=== PATIENT | female | born 1965 | race Caucasian/White ===

== ENCOUNTER → 2016-09-01 | Outpatient (CLI) | payer MEDICARE ==
[~2016-09-01] MED LIST: PSORIASIS CREAM
[2016-09-01 16:34] LABS: AUTOMATED NEUTROPHIL # 9.4 TH/MM3 (1.8-7.7); BASOPHIL # 0.1 TH/MM3 (0-0.2); BASOPHIL % 0.9 % (0.0-2.0); EOSINOPHIL # 0.1 TH/MM3 (0-0.4); EOSINOPHIL % 0.7 % (0.0-4.0); HEMO FLAGS DIFF FINAL; LYMPH % 17.7 % (9.0-44.0); LYMPHOCYTE # 2.2 TH/MM3 (1.0-4.8); MEAN CELL VOLUME 84.1 FL (80.0-100.0); MEAN CORPUSCULAR HGB CONC 33.3 % (32.0-36.0); MONO % 5.7 % (0.0-8.0); PLATELET COUNT 353 TH/MM3 (150-450); RED BLOOD COUNT 4.88 MIL/MM3 (4.00-5.30); RED CELL DISTRIBUTION WIDTH 16.6 % (11.6-17.2); WHITE BLOOD COUNT 12.5 TH/MM3 (4.0-11.0)
[2016-09-01 17:00] LABS: ANION GAP 13 MEQ/L (5-15); AST (GOT) 28 U/L (15-37); BICARBONATE 24.3 MEQ/L (21.0-32.0); BLOOD UREA NITROGEN 22 MG/DL (7-18); CHLORIDE 101 MEQ/L (98-107); GLOMERULAR FILTRATION RATE 64 ML/MIN (>89); GLUCOSE,FASTING 128 MG/DL (74-99); POTASSIUM 3.8 MEQ/L (3.5-5.1); SODIUM (NA) 138 MEQ/L (136-145)
[2016-09-01 17:03] LABS: ALKALINE PHOSPHATASE 106 U/L (45-117); ALT (GPT) 30 U/L (10-53); TOTAL BILIRUBIN ADULT 0.3 MG/DL (0.2-1.0)
[2016-09-04 14:28] LABS: MITOGEN MINUS NIL RESULT >10.00 IU/mL (()); NIL RESULT 0.01 IU/mL (()); QUANTIFERON TB GOLD RESULT Negative (Negative)
== END ==
LOC: CLAB 15:57
PROVIDERS: ATTEND Dermatology
DX: L40.0 Psoriasis vulgaris (principal)
CPT/HCPCS: 36415; 80053; 80074; 82248; 85025; 86480

== ENCOUNTER → 2016-10-13 | Outpatient (CLI) | payer MEDICARE ==
[2016-10-13 15:45] LABS: AUTOMATED NEUTROPHIL # 10.7 TH/MM3 (1.8-7.7); BASOPHIL # 0.1 TH/MM3 (0-0.2); BASOPHIL % 0.8 % (0.0-2.0); EOSINOPHIL # 0.2 TH/MM3 (0-0.4); EOSINOPHIL % 1.4 % (0.0-4.0); HEMATOCRIT 42.2 % (35.0-46.0); HEMO FLAGS DIFF FINAL; LYMPH % 21.1 % (9.0-44.0); LYMPHOCYTE # 3.1 TH/MM3 (1.0-4.8); MEAN CELL VOLUME 86.8 FL (80.0-100.0); MEAN CORPUSCULAR HEMOGLOBIN 28.6 PG (27.0-34.0); MONO % 4.7 % (0.0-8.0); PLATELET COUNT 382 TH/MM3 (150-450); RED BLOOD COUNT 4.87 MIL/MM3 (4.00-5.30); RED CELL DISTRIBUTION WIDTH 15.8 % (11.6-17.2); WHITE BLOOD COUNT 14.8 TH/MM3 (4.0-11.0)
[2016-10-13 16:05] LABS: ALT (GPT) 29 U/L (10-53); AST (GOT) 31 U/L (15-37)
[2016-10-13 16:08] LABS: ALKALINE PHOSPHATASE 131 U/L (45-117); INDIRECT BILIRUBIN 0.2 MG/DL (0.0-0.8); TOTAL BILIRUBIN ADULT 0.3 MG/DL (0.2-1.0)
== END ==
LOC: CLAB 15:11
PROVIDERS: ATTEND Dermatology
DX: L40.0 Psoriasis vulgaris (principal)
CPT/HCPCS: 36415; 80076; 85025

== ENCOUNTER → 2016-11-15 | Outpatient (CLI) | payer MEDICARE ==
[2016-11-15 11:00] LABS: AUTOMATED NEUTROPHIL # 8.1 TH/MM3 (1.8-7.7); BASOPHIL # 0.1 TH/MM3 (0-0.2); BASOPHIL % 0.8 % (0.0-2.0); EOSINOPHIL # 0.2 TH/MM3 (0-0.4); EOSINOPHIL % 1.5 % (0.0-4.0); HEMO FLAGS DIFF FINAL; LYMPH % 21.3 % (9.0-44.0); LYMPHOCYTE # 2.5 TH/MM3 (1.0-4.8); MEAN CELL VOLUME 86.6 FL (80.0-100.0); MEAN CORPUSCULAR HEMOGLOBIN 28.9 PG (27.0-34.0); MEAN CORPUSCULAR HGB CONC 33.4 % (32.0-36.0); MONO % 5.7 % (0.0-8.0); NEUT % 70.7 % (16.0-70.0); PLATELET COUNT 291 TH/MM3 (150-450); RED BLOOD COUNT 4.85 MIL/MM3 (4.00-5.30); RED CELL DISTRIBUTION WIDTH 15.5 % (11.6-17.2); WHITE BLOOD COUNT 11.5 TH/MM3 (4.0-11.0)
[2016-11-15 11:23] LABS: INDIRECT BILIRUBIN 0.2 MG/DL (0.0-0.8); TOTAL BILIRUBIN ADULT 0.3 MG/DL (0.2-1.0)
== END ==
LOC: CLAB 10:06
PROVIDERS: ATTEND Dermatology
DX: L40.0 Psoriasis vulgaris (principal)
CPT/HCPCS: 36415; 80076; 85025

== ENCOUNTER → 2017-02-15 | Outpatient (CLI) | payer MEDICARE ==
[2017-02-15 15:15] LABS: HEMATOCRIT 41.3 % (35.0-46.0); MEAN CORPUSCULAR HEMOGLOBIN 27.4 PG (27.0-34.0); MEAN CORPUSCULAR HGB CONC 32.6 % (32.0-36.0); PLATELET COUNT 317 TH/MM3 (150-450); RED BLOOD COUNT 4.92 MIL/MM3 (4.00-5.30); RED CELL DISTRIBUTION WIDTH 15.1 % (11.6-17.2); REVIEW FLAG FINAL; WHITE BLOOD COUNT 12.8 TH/MM3 (4.0-11.0)
[2017-02-15 15:21] LABS: BLOOD, URINE NEG (NEG); GLUCOSE,URINE NEG (NEG); HYALINE CAST, URINE 9 /lpf (RARE); KETONE, URINE NEG (NEG); MUCUS URINE FEW /lpf (OCC); NITRITE,URINE NEG (NEG); SQUAMOUS EPITHELIAL CELL URINE 1 /hpf (0-5); URINE COLOR LIGHT-YELLOW (YELLW/STRAW)
[2017-02-15 15:37] LABS: HDL CHOLESTEROL 44.1 MG/DL (40.0-60.0)
== END ==
LOC: CLAB 14:42
PROVIDERS: ATTEND Family Medicine
DX: E78.5 Hyperlipidemia, unspecified (principal)
CPT/HCPCS: 36415; 80061; 81001; 85027

== ENCOUNTER → 2017-06-06 | Outpatient (CLI) | payer MEDICARE ==
[~2017-06-06] MED LIST changes: +APRE1TAB3 PO; +FLUO0.05 TOPICAL; +FLUT1LOT TOPICAL; +FURO20TA PO; +GLUC100013 PO; +HALO0.053 TOPICAL; +KLOR10TA PO; +MEDR5TAB3 PO; +METO50TA PO; +NP T60TA PO; +OMEP20TA93 PO; +ROPI1TAB PO; +VITA1000 PO; +[UNRECOGNIZED DRUG - CODE] TOPICAL
[2017-06-06 15:43] LABS: HEMATOCRIT 40.6 % (35.0-46.0); HEMOGLOBIN 13.3 GM/DL (11.6-15.3); MEAN CELL VOLUME 80.4 FL (80.0-100.0); MEAN CORPUSCULAR HEMOGLOBIN 26.3 PG (27.0-34.0); MEAN CORPUSCULAR HGB CONC 32.7 % (32.0-36.0); MEAN PLATELET VOLUME 7.5 FL (7.0-11.0); PLATELET COUNT 338 TH/MM3 (150-450); RED BLOOD COUNT 5.05 MIL/MM3 (4.00-5.30); RED CELL DISTRIBUTION WIDTH 14.9 % (11.6-17.2); WHITE BLOOD COUNT 11.5 TH/MM3 (4.0-11.0)
--- NOTE | 2017-06-06 15:47 | RADRPT ---
EXAM DATE/TIME: 06/06/2017 15:33 [place] COMPARISON: No previous studies available for comparison. INDICATIONS : Evaluate for pneumonia, pneumothorax or communicable disease. Pre op hysterectomy. MEDICAL HISTORY : None. SURGICAL HISTORY : None. ENCOUNTER: Initial ACUITY: 1 day PAIN SCORE: 0/10 LOCATION: Bilateral chest FINDINGS: PA and lateral views of the chest demonstrate the lungs to be symmetrically aerated without evidence of mass, infiltrate or effusion. The cardiomediastinal contours are unremarkable. Osseous structure s are intact. CONCLUSION: 1. No acute cardiopulmonary findings identified. Ryan Lang MD on June 06, 2017 at 15:43 Board Certified Radiologist. This report was verified electronically.
[2017-06-06 16:04] LABS: ALBUMIN 3.6 GM/DL (3.4-5.0); ALT (GPT) 21 U/L (10-53); AST (GOT) 37 U/L (15-37); BICARBONATE 25.2 MEQ/L (21.0-32.0); BLOOD UREA NITROGEN 13 MG/DL (7-18); CALCIUM 9.4 MG/DL (8.5-10.1); CHLORIDE 106 MEQ/L (98-107); CREATININE 0.83 MG/DL (0.50-1.00); GLOMERULAR FILTRATION RATE 72 ML/MIN (>89); GLUCOSE,FASTING 106 MG/DL (74-99); SODIUM (NA) 142 MEQ/L (136-145)
[2017-06-06 16:07] LABS: ALKALINE PHOSPHATASE 145 U/L (45-117); TOTAL BILIRUBIN ADULT 0.2 MG/DL (0.2-1.0); TOTAL PROTEIN 8.3 GM/DL (6.4-8.2)
[2017-06-06 16:13] LABS: BILIRUBIN, URINE NEG (NEG); BLOOD, URINE LARGE (NEG); CALCIUM OXALATE CRYSTALS,URINE MANY /hpf; GLUCOSE,URINE NEG (NEG); KETONE, URINE NEG (NEG); NITRITE,URINE NEG (NEG); SQUAMOUS EPITHELIAL CELL URINE 3 /hpf (0-5); URINE LEUKOCYTE ESTERASE NEG (NEG)
[2017-06-06 16:15] LABS: URINE COLOR LIGHT-RED (YELLW/STRAW)
--- NOTE | 2017-06-06 20:11 | MH ---
cc: Wanda Farmer MD DATE OF ADMISSION: 06/06/2017 DATE OF PROCEDURE: 06/08/2017 PREOPERATIVE DIAGNOSIS: Chronic perimenstrual bleeding and pain, pain with sex for 7 years SCHEDULED PROCEDURE: LASH-BSO. HISTORY OF PRESENT CONDITION: The patient is a pleasant 52-year-old white female, para 2, with intact pelvis who is on hormone replacement therapy, specifically estradiol 0.1 mg patch and medroxyprogesterone 2.5 mg orally. She would like her ovaries out given her age and the uterus out to avoid this continuing. Her general health is overall pretty good. She has hypothyroidism and takes thyroid 60 mg. She has mild hypertension and takes metoprolol 50 mg. She takes Otezla for psoriasis. She has had 2 children, 1 by . She does not smoke. She quit in 12/2016. She drinks only socially. She has never done illicit drugs. FAMILY HISTORY: Noncontributory. SOCIAL HISTORY: She is on disability after a head injury at work. PHYSICAL EXAMINATION: VITAL SIGNS: Her weight today is 250, her blood pressure is 150/84. NECK: She has no thyroid enlargement. LUNGS: Clear to auscultation. HEART: Rate and rhythm are regular. BREAST: Without dominant mass, nipple discharge, skin retraction or adenopathy. ABDOMEN: Mildly obese. She does appear to have a ventral wall defect above the umbilicus when she bears down that is distant from the umbilicus. There are no hernias below this. No lymphadenopathy. GENITOURINARY: The perineum is well estrogenized. The vault is elevated and very deep. Cervix is multiparous and tender. Uterus is not significantly enlarged, but tender to palpation. Ovaries are not felt. Guaiac was negative. EXTREMITIES: Unremarkable other than she has a very significant number of tattoos. IMPRESSION: At this time is perimenopausal woman status post ablation 2 years ago, who appears to have developed hematocolpos in part from her section scar defect that was never reached by the [facility]. PLAN: Proceed with laparoscopic assisted vaginal hysterectomy bilateral salpingo-oophorectomy. She is scheduled for LAVHand BSO on and has signed consent. MD TANVI Newman/SB , 07:34 PM , 08:08 PM MTDChon
--- NOTE | 2017-06-07 20:51 | EKG ---
Date Performed: 06/06/2017 Time Performed: 15:00:38 PTAGE: 52 years EKG: Sinus rhythm NORMAL ECG NO PREVIOUS TRACING DOCTOR: Brody Crockett Interpretating Date/Time 06/07/2017 20:49:48
== END ==
LOC: CPRE 14:34
PROVIDERS: ATTEND Obstetrics & Gynecology
DX: Z01.812 Encounter for preprocedural laboratory examination (principal); Z01.811 Encounter for preprocedural respiratory examination; Z01.810 Encounter for preprocedural cardiovascular examination; N92.0 Excessive and frequent menstruation with regular cycle
CPT/HCPCS: 36415; 71046; 80053; 81001; 84703; 85027; 86850; 86900; 86901; 93005

== ENCOUNTER 2017-06-08 08:30 | Observation (INO) | payer MEDICARE ==
[~2017-06-08] VITALS: Ht 165.1 cm; Wt 118.2 kg
[~2017-06-08 08:30] MED LIST changes: -FLUT1LOT TOPICAL; -PSORIASIS CREAM
[2017-06-08] MEDS ORDERED: SODIUM CHLORID 0.9% 500 ML IV PRN (09:15)
[2017-06-08] MEDS ORDERED: ACETAMINOPHEN 1000 MG/100 ML 100 ML IV ONE (09:15)
[2017-06-08] MEDS ORDERED: METOPROLOL TARTRATE 25 MG TAB PO PRN (09:15)
[2017-06-08] MEDS ORDERED: CEFAZOLIN INJ 2,000 MG in SODIUM CHLORIDE 0.9% INJ 100 ML IV SCH (09:15)
[2017-06-08] MEDS ORDERED: POVIDONE IODINE 5% (ANTISEPSIS KIT) 4 APPLICATIONS EACH NARE PRN (09:15)
[2017-06-08] MEDS ORDERED: CHLORHEXIDINE GLUCONATE 2 % 1 PACK (2 CLOTHS) TOPICAL PRN (09:15)
[2017-06-08] MEDS ORDERED: LACTATED RINGER'S 1000 ML IV PRN (09:15)
[2017-06-08] MEDS ORDERED: SODIUM CHLORIDE 0.9% 20 ML VIAL ONE (10:03)
[2017-06-08] MEDS ORDERED: BUPIVACAINE/EPINEPHRINE 0.5% PF 30 ML VIAL ONE (10:04)
[2017-06-08] MEDS ORDERED: ESTROGENS CONJUGATED VAG CREA 15 APPL/30 GM TUBE ONE (10:04)
[2017-06-08] MEDS ORDERED: VASOPRESSIN 20 UNITS/ML VIAL ONE (10:04)
[2017-06-08] MEDS ORDERED: ONDANSETRON HCL 4 MG/2 ML VIAL IV ONE (12:00)
[2017-06-08] MEDS ORDERED: ROCURONIUM INJ 50 MG/5 ML SYRINGE IV PUSH ONE (12:00)
[2017-06-08] MEDS ORDERED: LIDOCAINE HCL 1% PF 5 ML SYRINGE OTHER ONE (12:00)
[2017-06-08] MEDS ORDERED: NEOSTIGMINE 5 MG/5 ML SYRINGE IV PUSH ONE (12:00)
[2017-06-08] MEDS ORDERED: GLYCOPYRROLATE 1 MG/5 ML SYRINGE IV PUSH ONE (12:00)
[2017-06-08] MEDS ORDERED: ceFAZolin INJ 1,000 MG VIAL IV ONE (12:00)
[2017-06-08] MEDS ORDERED: DEXAMETHASONE SOD PHOS 4 MG/ML VIAL IV ONE (12:00)
[2017-06-08] MEDS ORDERED: PROPOFOL 200 MG/20 ML AMP IV ONE (12:00)
[2017-06-08] MEDS ORDERED: DO NOT ADM ANY ANTICOAGULANT DRUGS PRN (13:49)
[2017-06-08] MEDS ORDERED: LACTATED RINGER'S 1000 ML INJ 1,000 ML IV SCH (13:49)
--- NOTE | 2017-06-08 13:49 | PD.OP ---
Operative Report Date of Surgery: Jun 08, 2017 Preoperative Diagnosis: (1) Pelvic peritoneal adhesions, female (2) Adenomyosis (3) Menometrorrhagia (4) Dysmenorrhea (5) Dyspareunia due to medical condition in female Postoperative Diagnosis: SAME Procedure: LAVHBSO enterolysis enterocele repair cystourethroscopy Anesthesia: Darian Surgeon: Wanda Farmer Staffing Coordinator(s): ivanna Operation and Findings: Wanda Ojeda MD Jun 08, 2017 13:48
[2017-06-08] MEDS ORDERED: MIDAZOLAM HCL 2 MG/2 ML VIAL ONE (13:58)
[2017-06-08] MEDS ORDERED: ESTRADIOL 0.1 MG/24 HR PATCH T-DERMAL ONE (14:00)
[2017-06-08] MEDS ORDERED: diphenhydrAMINE HCL 25 MG CAP PO PRN (14:00)
[2017-06-08] MEDS ORDERED: ONDANSETRON HCL 4 MG/2 ML VIAL IVP PRN (14:00)
[2017-06-08] MEDS ORDERED: ZOLPIDEM TARTRATE 5 MG TAB PO PRN (14:00)
[2017-06-08] MEDS ORDERED: SODIUM CHLORIDE 0.9% FLUSH 10 ML FLUSH IV FLUSH PRN (14:00)
[2017-06-08] MEDS ORDERED: oxyCODONE/ACETAMINOPHEN 5 MG/325 MG TAB PO PRN (14:00)
[2017-06-08] MEDS ORDERED: LORazepam 0.5 MG TAB PO PRN (14:00)
[2017-06-08] MEDS ORDERED: HYDROmorphone HCL PF 1 MG/ML VIAL IVP PRN (14:00)
[2017-06-08] MEDS ORDERED: *morphine SULFATE 10 MG/ML PERIprocedure ONLY ONE ×2 (14:01→14:28)
--- NOTE | 2017-06-08 14:44 | MP ---
cc: Wanda Farmer MD DATE OF OPERATION: 06/08/2017 DATE OF PROCEDURE: 06/08/2017 PREOPERATIVE DIAGNOSES: Chronic menometrorrhagia, dysmenorrhea, dyspareunia. POSTOPERATIVE DIAGNOSES: Adenomyosis, polycystic ovaries, pelvic adhesions. PROCEDURE PERFORMED: Laparoscopic assisted vaginal hysterectomy and bilateral salpingo-oophorectomy with a modifier code for significant difficulty, lysis of adhesions, enterocele repair and cystourethroscopy. ANESTHESIA: General endotracheal. SURGEON: Wanda Farmer MD LOADING AND UNLOADING SUPERVISOR: LEAH Medel. FINDINGS: Examination under anesthesia revealed a nulliparous cervix that was quite elevated, a mild rectocele, no cystocele, a fairly narrow and deep vaginal vault with a lot of soft tissue dystocia from the vulva and the size. Just this week, the patient had pointed out to us a significant ventral wall weakening well above the umbilicus that is palpable with any Valsalva. Upon entering the peritoneal cavity, there were significant adhesions of the omentum to the anterior abdominal wall, particularly above the umbilicus were apparently a small umbilical hernia had been repaired. It was really not possible to visualize the limits or degree of the palpable ventral wall hernia, but it was not anywhere involved in our potential field. Liver edge was normal. I was unable to see the gallbladder. Uterus was not overly enlarged. She had a previous tubal ligation. There was really no pelvic descent. A fairly deep enterocele. Both ovaries were very cystic with a single large follicular cyst on the left. Other than mild pelvic adhesions and then adhesions of the bladder to the lower uterine segment from section, the remainder of the pelvic cavity was unremarkable. There was no obvious infection, neoplasm or endometriosis. The laparoscopic portion of the hysterectomy was essentially unremarkable other than a persistent bleeder near the left uterosacral that was difficult to render hemostatic only because of the visualization with lots of redundant bowel and difficulty maintaining a pneumoperitoneum. Once was completed; however, then the case was directed vaginally. The vaginal portion of the hysterectomy was exceptionally difficult due to the very narrow vaginal vault, the lack of descent and the soft tissue dystocia; however, it was completed vaginally with both the bladder and the bowel intact and an enterocele repair was performed using a pursestring and then the vault was closed in a vertical direction. There appeared to be no bleeding from the vagina. No packing was placed. Attention was redirected above and the pneumoperitoneum reinstilled and irrigation performed. There did not appear to be any bleeding from any of the pedicles. Peritoneal surfaces were lysed adhesions. Lianna was placed in the surgical field. The pneumoperitoneum was released under direct visualization and the incisions were closed. Lastly, the scope was placed into the bladder after it was filled with the suction ornamental metal erector to confirm good flow from both ureteral orifices and a bladder that was without intrinsic or iatrogenic pathology. Sponge, instrument and needle count were correct. Estimated blood loss was 150 mL. She tolerated the procedure well and went to the recovery room in stable condition. DETAILS OF PROCEDURE: The patient was visited in holding and the procedure was again reviewed with her and her . She was taken to the operating room and placed under general endotracheal anesthesia in the dorsal lithotomy position. She had received 2 grams of Ancef en route. She had sequential stockings on prior to induction, a Person catheter was then placed and she was prepped and draped. A time-out was performed. Examination under anesthesia was performed. The Person catheter was placed and then a single-tooth tenaculum was placed on the anterior lip of the cervix and an acorn in the cervical os. Attention was directed to the abdomen. A 5 mm incision was made in the umbilicus and the 5 mm trocar and sleeve were placed with some difficulty and consideration of switching out for bariatric trocars and sleeves; however, these did not have the balloon and the decision was made to press on with the standard trocar and sleeve and inflate the balloon. A pneumoperitoneum was then created and then a 5 mm incision with lidocaine was made at the right edge of her Pfannenstiel incision and then another one on the left edge of her Pfannenstiel incision. Systematic evaluation of the abdominal and pelvic contents was performed with the findings as noted above. It was difficult because additional peritoneal pressure was necessary to adequately visualize the tissues. The right round ligament was grasped, transected and the anterior leaf of the broad ligament taken off the lower uterine segment. The right tube and ovary were placed under medial traction and the infundibulopelvic ligament was skeletonized, transected and then several pedicles were taken down to the round ligament and down toward the uterosacral with care to continually push the bladder down inferiorly and laterally and avoid any ureteral compromise. This was performed on the opposite side was a little more difficulty, a few more adhesions. At the uterosacral connection, an arterial bleeder opened up and was difficult to render hemostatic due to visualization. A third trocar and sleeve were placed in the Pfannenstiel to allow irrigation and traction at the same time and then this was rendered hemostatic. The irrigation was used to wash the abdominal pelvic cavity and then the pneumoperitoneum was released and attention was directed below. The acorn tenaculum was removed and the single-tooth tenaculum placed on both lips of the cervix. The patient had slid probably 1 foot superiorly and significant manipulation to get her close to the bottom of the bed was then performed to allow adequate visualization of the field. The legs were then gently retracted laterally and placed up superiorly and then the cervix was infiltrated with Marcaine with epinephrine and circumcised with the Bovie on cutting. The anterior and the posterior cul-de-sacs were entered with some difficulty, but then the uterosacrals were clamped, cut, suture ligated, and tagged. Two more pedicles on each side were clamped, cut, and suture ligated and the uterus was removed from the field with the tubes and ovaries intact. The peritoneum was grasped as much as could be visualized and closed in a circular Kassie pursestring suture and then the uterosacrals were plicated and the vagina was closed in a vertical running interlocking stitch. There was no bleeding from this point. Attention was redirected to the abdomen where the pneumoperitoneum was recreated and the 0-degree scope was placed in the peritoneal cavity to evaluate the peritoneal edges, the pedicles and where the adhesions had been lysed. Evista was placed and then the pneumoperitoneum was released under direct visualization. It is safe to say that it was difficult to evaluate the entirety of the peritoneal edges because of the bowel and the peritoneal adipose tissue. The incisions were then closed with a single interrupted of 3-0 on an SH. The suction ornamental metal erector was used to fill the bladder through the Person. The Person was removed. The laparoscope was placed into the bladder. Both ureteral orifices were easily identified and clear urine was seen to spew from both sides with significant flow. There was no evidence of iatrogenic injury or intrinsic pathology. The Person catheter was then replaced. She was placed in dorsal supine position, awoken, and taken to the recovery room in stable condition. MD TANVI Newman/KD , 01:43 PM , 02:41 PM
[2017-06-08] MEDS: oxyCODONE/ACETAMINOPHEN 5 MG/325 MG TAB PO PRN ×2 (15:00→22:07)
[2017-06-08 15:45] VITALS: BP 114/64; PULSE 68; RESP 16; TEMP 98.9; O2SAT 98
[2017-06-08] MEDS ORDERED: PILL SPLITTER OTHER PRN (15:45)
[2017-06-08] MEDS ORDERED: REMOVE OLD PATCH T-DERMAL SCH (16:00)
[2017-06-08] MEDS ORDERED: ONDANSETRON INJ 8 MG in DEXTROSE 5% IN WATER INJ 50 ML IV PUSH PRN ×2 (16:00)
[2017-06-08] MEDS: DOCUSATE SODIUM 100 MG CAP PO SCH (17:20)
[2017-06-08 20:55] VITALS: BP 137/68; PULSE 83; RESP 19; TEMP 98.3
[2017-06-08] MEDS ORDERED: SODIUM CHLORIDE 0.9% FLUSH 10 ML FLUSH IV FLUSH SCH (21:00)
[2017-06-09] MEDS: IBUPROFEN 600 MG TAB PO PRN ×2 (00:08→07:46)
[2017-06-09] MEDS ORDERED: SIMETHICONE 80 MG CHEWABLE TAB CHEW PRN (00:15)
[2017-06-09 01:08] VITALS: BP 142/57; PULSE 89; RESP 19; TEMP 98.3
[2017-06-09] MEDS: DOCUSATE SODIUM 100 MG CAP PO SCH (03:00)
[2017-06-09] MEDS: oxyCODONE/ACETAMINOPHEN 5 MG/325 MG TAB PO PRN ×2 (03:00→07:45)
[2017-06-09 05:04] VITALS: BP 164/91; PULSE 100; RESP 21; TEMP 98.5
[2017-06-09 07:54] LABS: BASOPHIL % 0.4 % (0.0-2.0); EOSINOPHIL % 0.2 % (0.0-4.0); HEMATOCRIT 34.9 % (35.0-46.0); HEMOGLOBIN 11.4 GM/DL (11.6-15.3); LYMPH % 26.9 % (9.0-44.0); LYMPHOCYTE # 3.3 TH/MM3 (1.0-4.8); MEAN CELL VOLUME 81.1 FL (80.0-100.0); MEAN CORPUSCULAR HEMOGLOBIN 26.5 PG (27.0-34.0); MEAN CORPUSCULAR HGB CONC 32.6 % (32.0-36.0); MEAN PLATELET VOLUME 7.4 FL (7.0-11.0); MONO % 6.4 % (0.0-8.0); MONOCYTE # 0.8 TH/MM3 (0-0.9); NEUT % 66.1 % (16.0-70.0); PLATELET COUNT 286 TH/MM3 (150-450); WHITE BLOOD COUNT 12.1 TH/MM3 (4.0-11.0)
[2017-06-09 08:19] LABS: BICARBONATE 24.7 MEQ/L (21.0-32.0); CALCIUM 8.7 MG/DL (8.5-10.1); CREATININE 0.78 MG/DL (0.50-1.00)
[2017-06-09 08:41] VITALS: BP 179/83; PULSE 85; RESP 20; TEMP 98.3; O2SAT 98
--- NOTE | 2017-06-09 09:40 | HHI.PR ---
Subjective Remarks POD 1 Doing well, pain is well controlled, eating well. no nausea, eating and ambulating catheter out Objective Vital Signs Vital Signs Date Time Temp Pulse Resp B/P (MAP) Pulse Ox O2 Delivery O2 Flow Rate FiO2 06/09/17 08:41 98.3 85 20 179/83 (115) 98 06/09/17 05:04 98.5 100 21 164/91 (115) 06/09/17 01:08 98.3 89 19 142/57 (85) 06/08/17 20:55 98.3 83 19 137/68 (91) 06/08/17 15:45 98.9 68 16 114/64 (81) 98 06/08/17 15:30 72 16 118/66 (83) 95 Room Air 06/08/17 15:00 76 16 114/76 (89) 95 Room Air 06/08/17 14:45 70 16 108/66 (80) 94 Room Air 06/08/17 14:30 76 16 112/56 (74) 96 Room Air 06/08/17 14:15 72 16 116/57 (76) 95 Room Air 06/08/17 14:00 70 16 123/60 (81) 96 Room Air 06/08/17 13:45 98.3 76 16 138/66 (90) 98 I/O 06/08/17 06/08/17 06/08/17 06/09/17 06/09/17 06/09/17 07:00 15:00 23:00 07:00 15:00 23:00 Intake Total 1800 ml 625 ml 1105 ml Output Total 1200 ml 1250 ml 1400 ml Balance 600 ml -625 ml -295 ml Intake Oral 250 ml 480 ml IV Total 100 ml 375 ml 625 ml Other 1700 ml Output Urine Total 1050 ml 1250 ml 1400 ml Estimated Blood Loss 150 ml Result Diagram: 06/09/1772506/09/17725 Objective Remarks Chest is clear, regular rate and rhythm. Abdomen is soft and non-distended. Incisions clean and dry. perineum dry ventral wall hernia to be addressed Ext no CCE. A/P Assessment and Plan Post Op Day 1 Doing well Home today and return to office Monday Wanda Farmer MD Jun 09, 2017 09:40
--- NOTE | 2017-06-09 09:43 | HHI.DCPOC ---
Discharge Care Plan Report Symptoms to Your Doctor -Temperature above 100.5 degrees -Redness, of incision or excessive or foul smelling drainage -Unusual pain or calf pain -Increased vaginal bleeding -Painful or difficulty urinating -Feelings of extreme sadness or anxiety after 2 weeks Goals to Promote Your Health * To prevent worsening of your condition and complications * To maintain your health at the optimal level Directions to Meet Your Goals Take your medications as prescribed Follow your dietary instruction Follow activity as directed Ensure plenty of rest for recovery Drink fluids for hydration Keep your appointments as scheduled Take your immunizations and boosters as scheduled If your symptoms worsen call your PCP, if no PCP go to Urgent Care Center or Emergency Room Smoking is Dangerous to Your Health. Avoid second hand smoke Call the 24-hour crisis hotline for domestic abuse at Wanda Farmer MD Jun 09, 2017 09:43
[2017-06-09 10:27] VITALS: BP 163/82; PULSE 87
== END 2017-06-09 11:15 | disposition home or self-care (01) ==
LOC: HSDC 08:30 → HSDI 13:51 → H1EA 15:39
PROVIDERS: ADMIT Obstetrics & Gynecology; ATTEND Obstetrics & Gynecology
DX: N80.0 Endometriosis of uterus (principal); E28.2 Polycystic ovarian syndrome; N73.6 Female pelvic peritoneal adhesions (postinfective); N81.5 Vaginal enterocele; N81.6 Rectocele; K66.8 Other specified disorders of peritoneum; N83.01 Follicular cyst of right ovary; N83.02 Follicular cyst of left ovary; K42.9 Umbilical hernia without obstruction or gangrene; N94.10 Unspecified dyspareunia; N94.6 Dysmenorrhea, unspecified; N92.1 Excessive and frequent menstruation with irregular cycle; I10 Essential (primary) hypertension; Z98.51 Tubal ligation status
CPT/HCPCS: 00840; 57268; 58552; 80048; 85025; 88307; 94150; 96360; G0378; J0131; J0690; J1100; J2250; J2270; J2405; J2710; J3010; J7120

== ENCOUNTER 2017-11-09 05:22 | Inpatient (IN) ==
--- NOTE | 2017-11-08 16:56 | MH ---
cc: Wanda Farmer MD,Lacho Newton MD DATE OF ADMISSION: 11/09/2017 SCHEDULED PROCEDURE: Rectocele repair in concert with ventral wall hernia repair by Dr. Patterson. HISTORY OF PRESENT CONDITION: The patient is a 52-year-old white female, para 2, status post LASH-BSO on 06/08/2017 for severe pelvic pain and irregular bleeding due to adenomyosis. She did not have any perineal procedures at that time and had not been complaining of any symptoms of a known rectocele. Subsequent to her hysterectomy, she started having problems with chronic constipation, except when she was on Otezla her psoriasis, which caused diarrhea. Going back and forth, she seemed to have exacerbated her rectocele and wanted to have this repaired. I have explained to her that as a primary procedure I am reticent to do this as the biggest risk is not meeting her expectations. I explained that rectocele repairs have a high rate of failure and/or recurrence. However, she has been scheduled to have a ventral wall defect repair with Dr. Patterson and I have agreed to be there at the same time to address this rectocele. In the interval time period, she says that the symptoms of the rectocele have gotten worse and that she has to evacuate the stool manually and has significant pain trying to push the stool back where it can be evacuated through the rectum. She has been waking up with headaches and her blood pressure has been elevated. Today, it was 160/100. She is on metoprolol but may need additional medication for that. She takes estradiol 2 mg. She takes Zoloft 50 mg. She also takes metoprolol and her thyroid medicine has been increased to 90 of [place] Thyroid. She is also on furosemide 20 mg. She denies any leakage of urine. She has no hot flushes or night sweats. Her depression appears to be well controlled. There is good mobility. She is a former smoker, but not smoking at this time. PHYSICAL EXAMINATION: GENERAL: She is a well-developed, well-nourished white female in no acute distress. VITAL SIGNS: Her weight is 258. Her blood pressure is 160/100. She is 5 feet 5 inches and this gives her a BMI of 42. NECK: She has no thyroid enlargement. LUNGS: Clear to auscultation. HEART: Rate and rhythm are regular. ABDOMEN: Shows a large bulge in the middle when she bears down or attempts to go from supine to seated. She does not have any inguinal hernias or nodes. PELVIC: Her perineum is well estrogenized. The vault is estrogenized. RECTAL: The rectocele about a third-degree rectocele with thin tissue and between the vaginal and rectal mucosa. She has good sphincter control. No hemorrhoids or fissures. Guaiac is negative. EXTREMITIES: Show some mild varicosities. IMPRESSION: Symptomatic rectocele to be fixed at the time of ventral wall hernia repair. SECONDARY DIAGNOSES: Hypothyroidism, hypertension and mild depression. PLAN: Proceed with a rectocele either before or after the ventral wall hernia repair. Risks, benefits, expectations, failure rate have been discussed in detail. She has signed consents and is scheduled to proceed in the morning. MD TANVI Newman/juan , 03:57 PM , 04:13 PM
[2017-11-09] MEDS ORDERED: Sodium Chlor 0.9% Inj 500 ML IV.SIG SCH (06:00)
[2017-11-09] MEDS ORDERED: Metoprolol Tartrate 25 MG Tablet PO SCH (06:00)
[2017-11-09] MEDS ORDERED: Chlorhexidine Gluconate 2% 1 Pack (2 Cloths) TOPICAL SCH (06:00)
[2017-11-09 06:26] LABS: Baso # (Auto) 0.1 th/mm3 (0.0-0.2); Baso % (Auto) 1.1 % (0.0-2.0); Eos # (Auto) 0.2 th/mm3 (0.0-0.4); Eos % (Auto) 1.7 % (0.0-4.0); Hemoglobin 14.3 gm/dL (11.6-15.3); Lymph % (Auto) 32.5 % (9.0-44.0); Mean Corpuscular Hemoglobin 29.4 pg (27.0-34.0); Mean Corpuscular Volume 86.7 fL (80.0-100.0); Mean Platelet Volume 7.7 fL (7.0-11.0); Mono # (Auto) 0.6 th/mm3 (0.0-0.9); Mono % (Auto) 6.4 % (0.0-8.0); Neut # (Auto) 5.4 th/mm3 (1.8-7.7); Neut % (Auto) 58.3 % (16.0-70.0); Platelet Count 262 th/mm3 (150-450); Red Blood Count 4.85 mil/mm3 (4.00-5.30); Red Cell Distribution Width 15.9 % (11.6-17.2); White Blood Count 9.3 th/mm3 (4.0-11.0)
[2017-11-09 06:31] LABS: Bilirubin,Urine Negative (Negative); Clarity,Urine Hazy (Clear); Color,Urine Yellow (Yellw/Straw); Glucose,Urine (UA) Negative (Negative); Hyaline Casts,Urine 1 /lpf (0-3); Leukocyte Esterase,Urine Negative (Negative); Mucus,Urine Few /lpf (Occasional); Nitrite,Urine Negative (Negative); Specific Gravity,Urine 1.023 (1.002-1.035); Squamous Epithelial Cell,Urine 2 /hpf (0-5)
[2017-11-09] MEDS ORDERED: ceFAZolin 2 GM Premix Inj 2 GM/50 ML PIGGYBACK IV.SIG ONE (07:44)
[2017-11-09] MEDS: Bupivacaine/Epinephrine 0.5% Inj 50 ML Vial ONE ×2 (09:00→15:29)
[2017-11-09] MEDS: Estrogens Congugated Vag Cream w/app 30 GM Tube VAGINAL ONE ×2 (09:10→15:29)
[2017-11-09] MEDS ORDERED: Sodium Chlor 0.9% Inj 250 ML ONE (09:19)
[2017-11-09] MEDS: Bupivacaine/Epinephrine PF Inj 0.25% 10 ML Vial ONE ×2 (09:20→15:29)
--- NOTE | 2017-11-09 09:58 | P.OP ---
- Preoperative Diagnosis (1) Rectocele - Postoperative Diagnosis (1) Rectocele Date of procedure: 11/09/17 Procedure: rectocele repair Anesthesia: GETA Surgeon: Wanda Farmer MD Estimated blood loss (mL): 100 Operation and Findings: unremarkable repair no enterocele
[2017-11-09] MEDS: Bupivacaine Liposomal PF 1.3% Inj 20 ML Vial ONE ×2 (10:20→15:28)
--- NOTE | 2017-11-09 10:33 | MP ---
cc: Wanda Farmer MD DATE OF OPERATION: 11/09/2017 PREOPERATIVE DIAGNOSIS: Rectocele. POSTOPERATIVE DIAGNOSIS: Rectocele. PROCEDURE PERFORMED: Rectocele repair. ANESTHESIA: General endotracheal. SURGEON: Wanda Farmer MD SLOT KEY PERSON: Belkis Goode, third year medical student, ANGELO Islas. FINDINGS: The patient has a third-degree rectocele. Enterocele was previously obliterated during a vaginal case. The fourchette is not gaping, but the rectocele was profound enough to cause the need for manual stool evacuation and chronic pain. The repair went unremarkably and she tolerated it well. Estimated blood loss was less than 100 mL. PROCEDURE: The patient was identified as Wanda Tomlinson. Her permit was reviewed with her and holding. It was understood that I would perform the rectocele repair and this would be followed by her ventral wall repair for a rectus diastasis with Dr. Patterson. She was taken to the operating room. She was placed under general endotracheal anesthesia. She was prepped and draped in the usual sterile fashion in the lithotomy position. She had received 2 grams of Ancef preop. She had sequential stockings on that were working. A timeout had been performed with all in attendance. After she was prepped and draped, a Person catheter was placed. Examination under anesthesia revealed a well-elevated vault with no cystocele, no granulation or erosion of the anterior wall. The rectocele was a third-degree rectocele, but it was a high rectocele with a fairly normal fourchette. There was no evidence of enterocele on careful rectovaginal exam as this had been previously obliterated. The angles for introitus were grasped with Allises in the midline infiltrated up to the apex. This was then incised in the midline through the mucosa with the Bovie on cutting. Then, Allises were placed for traction and the posterior mucosa was dissected bluntly off the rectovaginal septum as far lateral as was possible, incurring minimal bleeding. The very attenuated rectovaginal septum was plicated and imbricated to minimize the amount of tissue bulging with care to avoid entering the rectal mucosa. Then, 6 mattress sutures were placed from the apex down to the level of the fourchette to reapproximate the attenuated fibers of the rectovaginal septum. The redundant vaginal mucosa was then excised and interrupted sutures were placed in the posterior wall. There was no bleeding from this. At the end of the case, Premarin was placed into the vaginal vault. She was then placed in dorsal supine position to be reprepped and draped in anticipation of a procedure by Dr. Patterson. A call was made to her to let him know she did well. A voice message was left. Sponge, instrument and needle counts were correct. She tolerated the procedure well. Postop recovery and orders will be per her abdominal case. MD TANVI Newman/juan , 10:03 AM , 10:10 AM
[2017-11-09] MEDS ORDERED: *morphine SULFATE 10 MG/ML PERIprocedure ONLY ONE (11:29)
[2017-11-09] MEDS ORDERED: fentaNYL Citrate Inj 100 MCG/2 ML Ampul ONE ×2 (11:30)
[2017-11-09] MEDS ORDERED: Post-op Orders (for Pharmacy) OTHER ONE (11:32)
[2017-11-09] MEDS ORDERED: Bisacodyl 10 MG Supp RECTAL PRN (11:32)
[2017-11-09] MEDS ORDERED: CLOBETASOL TOPICAL PRN (11:38)
[2017-11-09] MEDS ORDERED: Enoxaparin Inj 40 MG/0.4 ML Syringe SQ SCH (11:45)
--- NOTE | 2017-11-09 11:49 | P.OP ---
- Preoperative Diagnosis (1) Diastasis recti - Postoperative Diagnosis (1) Diastasis recti Date of procedure: 11/09/17 Procedure: Open repair symptomatic rectus diastases with modified separation of components , placement of retrorectus bioabsorbable mesh, modified abdominoplasty with excision of skin and subcutaneous fat measuring 22 x 4.5 x 4 cm, placement PIC O dressing Implants: 10 x 15 T IGR mesh Anesthesia: RUDY Surgeon: Lacho Patterson MD Farmer Cash Grain: LEAH Castillo Estimated blood loss (mL): 20 Pathology: none sent Operation and Findings: The patient was identified as Wanda Mckinnon, taken to the operating room and placed in a supine position. Sequential compression device were placed on bilateral lower extremities. Patient underwent rectocele repair by Dr. Farmer. Please refer to her operative report for details. Following returning the patient to a supine position the patient's abdomen was prepped and draped in usual sterile fashion with Betadine. A timeout procedure was performed. Following completion timeout procedure everyone's satisfaction within the room a proposed upper midline incision was made with a marking pen. 0.25% Marcaine with epinephrine was placed beneath the proposed incision site. Incision was carried out the scalpel and hemostasis control electrocautery. Dissection new posteriorly to the level of the linea alba. The subcutaneous fatty tissue was dissected free of the underlying fascia on both sides until the edge of the rectus muscle was identified. The diastases measured about 4 cm in width. From the xiphoid process to the umbilicus were previous umbilical hernia was repaired the anterior rectus fascia was opened in a retrorectus plane was developed using electrocautery. The edge of the rectus fascia was then approximated on both sides using a running #1 single-stranded PDS suture. The retrorectus plane was irrigated with saline. An open nerve block using 20 cc of Exparel mixed with 40 cc of saline was performed injecting the long lasting local anesthetic into the muscular fibers lateral to the posterior rectus fascia on both sides. A 10 x 15 cm piece of T IGR mesh was selected and modified slightly and shape. There was placed into the retrorectus position and held with interrupted 2-0 PDS sutures. Sutures were placed in the 12 and 6 o'clock position then the 3 and 9 o'clock position to make the mesh taut in the retrorectus position. Intermittent 2-0 PDS sutures were then placed between the 9 and 12:00 3 and 6:00 6 and 9:00 and then 12 and 3:00 positions. Irrigation ensued there is no evidence of bleeding. Attention was then turned to mobilization of the anterior fascia from the subcutaneous fat and this was performed on both sides. This allowed for medialization of the anterior fascia and rectus muscle. The midline anterior rectus fascia was then closed with a running #1 single-stranded PDS started at the 6:00 and 12:00 positions of meeting in the midline. This allowed for closure of the fascia and muscle over the top of the T IGR mesh. Redundant skin and subcutaneous fatty tissue was then excised and the elliptical fashion using a scalpel and electrocautery measuring 22 x 4 x 4.5 cm in size. This tissue was discarded. The subcutaneous fat was then quilted to the anterior fascia with multiple interrupted 2-0 Vicryl sutures. 2-0 Vicryl was used to approximate the deep subcutaneous fat in the midline fascia to begin closure at the midline. It multiple interrupted 2-0 Vicryl sutures were then placed in more superficial subcutaneous fatty tissue to close the space. The skin was approximate the running 4-0 Monocryl subcuticular sutures. Dressings were applied with Mastisol 4 x 4 and a PIC O dressing with a 20 cm pad. This was connected to suction, there was no evidence of leak. It was then connected to the battery pack. A modified separation of components was a critical part of this procedure. This allowed for primary closure of the posterior fashion peritoneum imbricating the rectus diastases. It also allowed for placement of the retrorectus mesh as described above. Blood supply and nerve neural structures were preserved during separation of components as much as possible while allowing for primary closure of the posterior and anterior fascial layers. The patient tolerated the procedures without apparent complication. Sponge needle and instrument counts were corrected at the end of the case. The patient was transported to PACU in stable condition.
[2017-11-09] MEDS ORDERED: *Meperidine Inj 25 MG/ML Vial PERIprocedural Use ONLY ONE (11:57)
[2017-11-09] MEDS ORDERED: Phenylephrine/NS 1000 MCG/10ML Syringe IV.PUSH ONE (12:00)
[2017-11-09] MEDS ORDERED: Neostigmine Inj 5 MG/5 ML Syringe IV.PUSH ONE (12:00)
[2017-11-09] MEDS ORDERED: Lidocaine PF 1% Inj 5 ML Syringe INFILTRATN ONE (12:00)
[2017-11-09] MEDS ORDERED: Glycopyrrolate Inj 1 MG/5 ML Syringe IV.PUSH ONE (12:00)
[2017-11-09] MEDS ORDERED: *morphine SULFATE 4 MG/ML PERIprocedure ONLY ONE (12:38)
[2017-11-09] MEDS ORDERED: HYDROmorphone PF Inj 2 MG/ML Vial ONE (13:09)
[2017-11-09] MEDS ORDERED: Ketorolac Inj 30 MG/ML (IVP) Vial IV.PUSH PRN (13:16)
[2017-11-09] MEDS: Senna/Docusate Sodium 8.6/50 MG Tablet PO SCH (21:34)
[2017-11-09 22:01] VITALS: RESP 16
[2017-11-10] MEDS: Estradiol 1 MG Tablet PO SCH ×2 (04:17→09:59)
[2017-11-10 05:52] VITALS: BP 130/63; PULSE 76; TEMP 98.3; O2SAT 97
[2017-11-10] MEDS ORDERED: Furosemide 20 MG Tablet PO SCH (09:00)
[2017-11-10] MEDS ORDERED: LORazepam 1 MG Tablet PO PRN (09:00)
[2017-11-10] MEDS ORDERED: [UNRECOGNIZED DRUG - REMARK] PO SCH (09:00)
--- NOTE | 2017-11-10 09:09 | P.PNOB ---
Assessment and Plan - Postoperative Procedures Operation Date: 11/09/17 07:30 Actual Procedures Side Surgeon p Repair, Rectocele, Exam Under Anesthesia Wanda Farmer MD s Open Repair Diastasis Recti Moderate Component Separation Lacho Patterson MD Postoperative status: doing well Postoperative plan: routine post-op care (ordered benzo to relax muscles for today (unlikely to need on discharge)), see orders (miralax) - Time Spent With Patient Total time spent is greater than 50% in coordination of care (as documented) at patient's floor/unit and/or counseling patient: Subjective Interval history: Standing throughout the night because it was too painful to sit. Reports significant pain, worse than hysterectomy. Reminded this was expected. Reports some bleeding on pad. kept them for me to see and actually minimal. Feels urge to move bowels which is expected given plication. reassured. Physical Exam Vital signs: Temp Pulse Resp BP Pulse Ox 98.3 F 76 16 130/63 97 11/10/17 04:00 11/10/17 04:00 11/10/17 04:00 11/10/17 04:00 11/10/17 04:00 Narrative: She is standing and walking very well. Difficult to bend. Perineum not swollen and pad has scant discharge or blood binder on abdomen not removed - Urinary Catheter Management Indwelling Urethral Catheter Cath placed during this visit: yes Urethral indwelling: No Insertion date: 11/09/17 Insertion time: 08:19 Results - Labs CBC & Chem 7: 11/09/17 06:03
[2017-11-10] MEDS: Senna/Docusate Sodium 8.6/50 MG Tablet PO SCH (09:59)
[2017-11-10] MEDS ORDERED: Polyethylene Glycol 3350 17 GM Packet PO SCH (10:00)
[2017-11-10] MEDS ORDERED: Enoxaparin Inj 40 MG/0.4 ML Syringe SQ SCH (11:00)
--- NOTE | 2017-11-10 16:22 | P.PNGS ---
Subjective Interval history: Ambulating in her room; Painful but thinks abdominal binder is helping Physical Exam Vital signs: Vital Signs 11/09/17 20:00 11/10/17 00:00 11/10/17 01:30 Temperature 99.2 F 98.2 F Pulse Rate 84 78 Respiratory Rate 16 16 16 Blood Pressure 137/70 131/67 Pulse Oximetry 96 96 11/10/17 04:00 Temperature 98.3 F Pulse Rate 76 Respiratory Rate 16 Blood Pressure 130/63 Pulse Oximetry 97 Intake & Output 11/09/17 11/10/17 11/10/17 18:59 06:59 18:59 Intake Total 2100 / 2100 1000 / 1000 Output Total 1355 / 1355 Balance 745 / 745 1000 / 1000 Weight 115.666 kg 116.3 kg Intake: IV 1100 / 1100 1000 / 1000 LR 1000 mL Inj 1,000 ML @ 100 1000 / 1000 mls/hr IV.CONT .Q10H ZANE Rx#: [id number] LR 1000 mL Inj 1,000 ML @ 30 1000 / 1000 mls/hr IV.SIG .Q24H ZANE Rx#: [id number] Ancef Inj 2,000 MG In NS Inj 100 / 100 100 ML @ 200 mls/hr IV.SIG AUTOMATIC SPINNING LATHE SETTER ZANE Rx#:[id number] Anesthesia Amount 1000 / 1000 Output: Estimated Blood Loss 30 / 30 Urine Amount (Catheter) 1325 / 1325 Indwelling Urethral Catheter 1325 / 1325 Other: Date of Last Bowel Movement 11/08/17 11/08/17 Narrative: Alert and awake Cardio: RRR Resp: CTAB Abd: binder in place; FABY on midline incision with good seal; battery box with green light; lower dressing in place Psoriasis on upper extremities - Urinary Catheter Management Indwelling Urethral Catheter Cath placed during this visit: yes Urethral indwelling: No Reason for continuing: Acute urinary retention Insertion date: 11/09/17 Insertion time: 08:19 Assessment and Plan - Assessment (1) Diastasis recti Code(s): M62.08 - Separation of muscle (nontraumatic), other site Status: Acute Plan: 52 year old female POD1 Open repair symptomatic rectus diastases with modified separation of components -Continue FABY dressing -Regular diet -Pain controlled with Percocet -Binder in place -OOB and mobilize -Home this evening if pain better vs tomorrow AM -Percocet rx on chart -Follow up next week with Dr. Patterson - Attending Attestation The patient was seen personally by me and her room 5:20 PM. Upon my arrival she expressed an interest in being discharged home. She has been eating and drinking small amounts and tolerating it well. She has passed flatus. She is voiding without difficulty. She has been up walking the halls. Her pain is well controlled. Examination demonstrates her PIC O dressing is in. There is minimal dried bloody drainage at the apex. There is no erythema. Her extremities are nonedematous. Plan is for discharge home this evening. She will follow-up with me in the office next week on . She is to leave her picot dressing on. It gets a little wet she should pat it dry. The exam, history, and the medical decision-making described in the above note were completed with the assistance of the mid-level provider. I reviewed and agree with the findings presented. I attest that I had a [id number] encounter with the patient on the same day, and personally performed and documented my assessment and findings in the medical record.
== END 2017-11-10 21:02 | disposition home or self-care (01) ==
LOC: HOR 05:22 → HSDI 11:32 → N06 14:58
PROVIDERS: ADMIT Surgery Trauma Surgery; ATTEND Surgery Trauma Surgery